=== PATIENT | female | born 2000 | race Caucasian/White ===

== ENCOUNTER 2023-04-30 00:24 | Emergency (ER) | payer MEDICAID, SELFPAY ==
[2023-04-30 00:27] VITALS: BMI 42.3
[2023-04-30 00:31] VITALS: BP 147/105; PULSE 113; RESP 19; TEMP 37.1; O2SAT 98
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
[2023-04-30] MEDS: LORazepam 1 mg Tablet PO (00:44)
[2023-04-30 01:24] VITALS: RESP 18
[2023-04-30] MEDS: ondansetron 2 mg/ML SDV 2 mL 4 MG IVP (01:24)
[2023-04-30] MEDS: morphine 4 mg/mL SDV 1 mL IVP (01:24)
[2023-04-30 01:40] VITALS: BP 139/79; PULSE 105; RESP 18; O2SAT 96
[2023-04-30 01:43] LABS: Basophils # 0.1 10^3/uL (0.0-0.1); Basophils % 1.1 %; Eosinophils # 0.4 10^3/uL (0.0-0.8); Eosinophils % 3.4 %; Hematocrit 41.2 % (37.0-47.0); Hemoglobin 13.9 g/dL (11.5-15.3); Lymphocytes # 4.2 10^3/uL (0.8-4.8); Lymphocytes % 38.2 %; Mean Corpuscular HGB Conc 33.7 g/dL (30.0-36.0); Mean Corpuscular Hemoglobin 27.3 pg (28.0-34.0); Mean Corpuscular Volume 80.8 fl (81-99); Monocytes % 8.7 %; Neutrophils % 47.6 %; Nucleated Red Blood Cells % 0 %; Platelet Count 353 10^3/cmm (130-400); Red Cell Distribution Width 13.2 % (12.1-15.1); White Blood Count 10.9 10^3/uL (4.0-10.0)
[2023-04-30 02:01] LABS: Alanine Aminotransferase 35 U/L (0-33); Albumin Level 4.2 g/dL (3.5-5.2); Alkaline Phosphatase 65 U/L (35-105); Anion Gap 18.4 (5-19); Aspartate Amino Transferase 21 U/L (0-32); Blood Urea Nitrogen 9 mg/dL (6-20); Carbon Dioxide 22 mmol/L (22-29); Chloride 105 mmol/L (98-107); Globulin 2.9 g/dL (1.3-4.6); Glomerular Filtration Rate 104.6 mL/min (90-130); Glucose 92 mg/dL (65-115); Lipase 14 U/L (13-60); Osmolality Calculated 292 mOsm/kg (285-295); Potassium 3.4 mmol/L (3.5-5.1); Sodium 142 mmol/L (136-145); Total Bilirubin 0.2 mg/dL (0.15-1.2); Total Protein 7.1 g/dL (6.6-8.7)
[2023-04-30 02:02] LABS: HCG Qualitative Urine. Negative (Negative)
[2023-04-30 02:10] LABS: Add Urine Culture? No; Add Urine Microscopic? YES; Bacteria Urine 1+ /hpf; Bilirubin Urine Neg (Negative); Blood Urine Neg (Negative); Glucose Urine UA Norm (Normal); Ketones Urine Negative (Negative); Leukocyte Esterase Urine Negative (Negative); Mucus Urine 2+ /hpf; Nitrate Urine Negative (Negative); Protein Urine Neg (Negative); Specific Gravity, Urine 1.025 (1.005-1.030); Squamous Epithelial Cell Urine 15-25 /hpf (0-5); Urine Appearance SL Hazy (CLEAR); Urine Color Yellow (Yellow); Urobilinogen Urine Neg (Negative); WBC Urine 0-4 /hpf (0-5); pH Urine 5 (5-7)
[2023-04-30] MEDS: azithromycin 250 mg Tablet 500 MG PO (02:19)
[2023-04-30] MEDS: cefTRIAXone 1,000 MG in sodium chloride 0.9% (plus) 50 ML 100 MG IV (02:20)
[2023-04-30 02:56] VITALS: BP 115/70; PULSE 93; RESP 18; O2SAT 94
[2023-04-30 03:33] VITALS: BP 115/70
--- NOTE | 2023-05-03 11:42 | DCPLANNER ---
manager retail sales called patient due to no primary care physician - no answer at this time.
== END 2023-04-30 03:35 | disposition home or self-care (01) ==
PROVIDERS: Emergency Provider Emergency Medicine
DX: R30.0 Dysuria (principal)
CPT/HCPCS: 80053; 81001; 81025; 83690; 85025; 87210; 87491; 87591; 96365; 96375; 99284; J0696; J2270; J2405; Q0144

== ENCOUNTER 2023-04-30 23:53 | Emergency (ER) | payer MEDICAID, SELFPAY ==
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
[2023-04-30 23:58] VITALS: BP 138/108; PULSE 89; RESP 16; O2SAT 95; BMI 36.0
[2023-05-01 00:23] LABS: Add Urine Microscopic? NO; Charge for UA Resulting for Rev
[2023-05-01 00:29] LABS: Bilirubin Urine Neg (Negative); Blood Urine Neg (Negative); Glucose Urine UA Norm (Normal); Ketones Urine Negative (Negative); Leukocyte Esterase Urine Negative (Negative); Nitrate Urine Negative (Negative); Protein Urine Neg (Negative); Specific Gravity, Urine 1.015 (1.005-1.030); Urine Appearance Clear (CLEAR); Urine Color Light yellow (Yellow); Urobilinogen Urine Norm (Negative); pH Urine 7 (5-7)
[2023-05-01 00:35] LABS: Amphetamines Screen Urine Negative (Negative); Barbiturates Screen Urine Negative (Negative); Benzodiazepines Screen Urine Negative (Negative); Cocaine Screen Urine Negative (Negative); Opiate Screen Urine Negative (Negative); PCP Screen Urine Negative (Negative); THC Screen Urine Negative (Negative)
[2023-05-01 00:41] LABS: Basophils # 0.1 10^3/uL (0.0-0.1); Basophils % 1.1 %; Eosinophils # 0.7 10^3/uL (0.0-0.8); Eosinophils % 6.6 %; Hematocrit 39.8 % (37.0-47.0); Hemoglobin 12.9 g/dL (11.5-15.3); Lymphocytes % 29.3 %; Mean Corpuscular HGB Conc 32.4 g/dL (30.0-36.0); Mean Corpuscular Hemoglobin 26.7 pg (28.0-34.0); Mean Corpuscular Volume 82.2 fl (81-99); Mean Platelet Volume 10.5 fL (7.4-10.4); Monocytes # 1.1 10^3/uL (0.2-0.9); Monocytes % 10.5 %; Neutrophils # 5.32 10^3/uL (1.8-7.7); Neutrophils % 51.8 %; Nucleated Red Blood Cells % 0 %; Platelet Count 302 10^3/cmm (130-400); Red Blood Count 4.84 10^6/uL (4.1-5.3); Red Cell Distribution Width 13.4 % (12.1-15.1); White Blood Count 10.3 10^3/uL (4.0-10.0)
[2023-05-01 00:51] LABS: HCG, Serum Qual Negative (Negative)
[2023-05-01 01:11] LABS: Alanine Aminotransferase 32 U/L (0-33); Albumin Level 3.7 g/dL (3.5-5.2); Alkaline Phosphatase 65 U/L (35-105); Anion Gap 14.4 (5-19); Aspartate Amino Transferase 21 U/L (0-32); Blood Urea Nitrogen 9 mg/dL (6-20); Calcium 8.7 mg/dL (8.5-10.5); Carbon Dioxide 24 mmol/L (22-29); Chloride 102 mmol/L (98-107); Globulin 2.8 g/dL (1.3-4.6); Glomerular Filtration Rate 104.6 mL/min (90-130); Glucose 96 mg/dL (65-115); Osmolality Calculated 283 mOsm/kg (285-295); Potassium 3.4 mmol/L (3.5-5.1); Sodium 137 mmol/L (136-145); Thyroid Stimulating Hormone 3.15 uIU/mL (0.27-4.20); Total Bilirubin 0.3 mg/dL (0.15-1.2); Total Protein 6.5 g/dL (6.6-8.7)
[2023-05-01 01:14] LABS: Acetaminophen < 5.0 ug/mL (10-30); Alcohol Level < 10 mg/dL (0-10); Salicylate < 0.3 mg/dL (3-10)
[2023-05-01 01:57] VITALS: BP 118/64; PULSE 89; RESP 18; O2SAT 93
--- NOTE | 2023-05-03 12:23 | DCPLANNER ---
property claims manager called patient due to no primary care physician - no answer at this time.
== END 2023-05-01 02:40 | disposition home or self-care (01) ==
PROVIDERS: Emergency Provider Nurse Practitioner Family
DX: F41.9 Anxiety disorder, unspecified (principal); Z91.51 Personal history of suicidal behavior; Z91.410 Personal history of adult physical and sexual abuse
CPT/HCPCS: 80053; 80306; 80307; 81003; 84443; 84703; 85025; 99283

== ENCOUNTER 2023-06-10 22:21 | Inpatient (IN) | payer MEDICAID, SELFPAY ==
[2023-06-10 22:24] VITALS: BP 124/80; PULSE 119; RESP 18; TEMP 36.6; O2SAT 93; BMI 42.3
--- NOTE | 2023-06-10 22:32 | ECG_ITS ---
[facility] Test Date: 2023-06-10 Pat Name: Meli Aranda Department: Room: 151 Gender: Female Judicial Law Clerk: : 2000 Requested By: Darrell Ledesma Order Number: [id number] Hayden MD: Katia Chester M.D. Measurements Intervals [place] Rate: 105 P: 32 CO: 151 QRS: 46 QRSD: 106 T: 40 QT: 323 QTc: 428 Interpretive Statements SINUS TACHYCARDIA INCOMPLETE RIGHT BUNDLE BRANCH BLOCK [90+ ms QRS DURATION, TERMINAL R IN V1/V2, 40+ ms S IN I/aVL/V4/V5/V6] ABNORMAL RHYTHM ECG No previous ECG available for comparison Electronically Signed On 06-11-2023 20:14:32 CDT by Katia Chester M.D. [email or web address]
[2023-06-10 22:34] LABS: Basophils # 0.1 10^3/uL (0.0-0.1); Basophils % 1.2 %; Eosinophils # 0.7 10^3/uL (0.0-0.8); Eosinophils % 6.4 %; Hematocrit 41.6 % (37.0-47.0); Hemoglobin 13.7 g/dL (11.5-15.3); Mean Corpuscular HGB Conc 32.9 g/dL (30.0-36.0); Mean Corpuscular Hemoglobin 26.8 pg (28.0-34.0); Mean Corpuscular Volume 81.4 fl (81-99); Mean Platelet Volume 11.4 fL (7.4-10.4); Monocytes # 1.1 10^3/uL (0.2-0.9); Monocytes % 10.2 %; Neutrophils # 6.89 10^3/uL (1.8-7.7); Neutrophils % 63.1 %; Nucleated Red Blood Cells % 0 %; Platelet Count 290 10^3/cmm (130-400); Red Blood Count 5.11 10^6/uL (4.1-5.3); White Blood Count 10.9 10^3/uL (4.0-10.0)
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
[2023-06-10 22:47] LABS: Alanine Aminotransferase 26 U/L (0-33); Alcohol Level 155 mg/dL (0-10); Alkaline Phosphatase 75 U/L (35-105); Anion Gap 18.3 (5-19); Aspartate Amino Transferase 22 U/L (0-32); Blood Urea Nitrogen 9 mg/dL (6-20); Calcium 8.9 mg/dL (8.5-10.5); Carbon Dioxide 20 mmol/L (22-29); Chloride 105 mmol/L (98-107); Creatinine Clr Calc Pharmacy 149.6629; Globulin 2.8 g/dL (1.3-4.6); Glomerular Filtration Rate 89.7 mL/min (90-130); Glucose 118 mg/dL (65-115); Osmolality Calculated 290 mOsm/kg (285-295); Potassium 3.3 mmol/L (3.5-5.1); Salicylate 0.5 mg/dL (3-10); Sodium 140 mmol/L (136-145); Total Bilirubin 0.2 mg/dL (0.15-1.2); Total Protein 6.8 g/dL (6.6-8.7)
[2023-06-10 22:57] LABS: Acetaminophen < 5.0 ug/mL (10-30)
--- NOTE | 2023-06-10 23:09 | PC.NURSE ---
pt pulled IV out out. Iv was intact and dressing was placed.
[2023-06-10 23:10] LABS: HCG Qualitative Urine. Negative (Negative)
[2023-06-10] MEDS: nicotine 21 mg Patch 1 PATCH TRANSDERMA (23:12)
[2023-06-10 23:25] VITALS: BP 149/83; PULSE 170; RESP 30; O2SAT 95
[2023-06-10] MEDS: haloperidol inj 5 mg/mL INJ 1 mL IM (23:28)
[2023-06-10] MEDS: LORazepam 2 mg/mL INJ 1 mL IM (23:28)
[2023-06-10 23:29] LABS: Amphetamines Screen Urine Negative (Negative); Barbiturates Screen Urine Negative (Negative); Benzodiazepines Screen Urine Negative (Negative); Cocaine Screen Urine Negative (Negative); Opiate Screen Urine Negative (Negative); PCP Screen Urine Negative (Negative); THC Screen Urine Negative (Negative)
--- NOTE | 2023-06-10 23:30 | PC.NURSE ---
Pt served with copy of 96 Hour Hold Rights by this RN and multiple staff members. Pt had no questions at that time.
[2023-06-10 23:40] VITALS: BP 176/148; PULSE 179; RESP 34; O2SAT 92
[2023-06-10 23:54] VITALS: O2SAT 92
[2023-06-10 23:55] VITALS: BP 133/63; PULSE 136; RESP 20; O2SAT 92
[2023-06-11] VITALS (23 sets, daily range): BP systolic 89–141; BP diastolic 42–88; PULSE 91–133; RESP 14–27; TEMP 36.6–36.8; O2SAT 89–98
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
--- NOTE | 2023-06-11 01:08 | PC.NURSE ---
Advised Dr. Ledesma of patient blood pressure and O2 sat, states due to sedation medications and to continue monitoring.
--- NOTE | 2023-06-11 04:09 | PC.NURSE ---
report called to [facility] @ [phone]
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
[2023-06-11] MEDS: budesonide 0.5 mg/2 mL Neb INHALATION ×2 (07:43→19:40)
[2023-06-11] MEDS: albuterol 2.5 mg/3 mL Neb INHALATION ×4 (07:44→19:40)
--- NOTE | 2023-06-11 08:00 | PC.OT ---
Patient uncooperative this date with therapist refusing to answer ?'s. RN reports combative behavior last evening with multiple staff members. Not appropriate for group at this time.
[2023-06-11] MEDS: ARIPiprazole 10 mg Tablet 5 MG PO (09:27)
[2023-06-11] MEDS: thiamine 100 mg Tablet PO (09:28)
[2023-06-11] MEDS: folic acid 1 mg Tablet PO (09:28)
[2023-06-11] MEDS: multivitamin therapeutic Tablet 1 TAB PO (09:28)
[2023-06-11] MEDS: sertraline 50 mg Tablet PO (09:28)
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
[2023-06-11] MEDS: montelukast sodium 10 mg Tablet PO (18:26)
[2023-06-11] MEDS: trazodone 100 mg Tablet PO (20:51)
[2023-06-12] VITALS (7 sets, daily range): BP systolic 132–148; BP diastolic 82–89; PULSE 75–108; RESP 16–20; TEMP 36.6–36.9; O2SAT 92–98
[2023-06-12] MEDS: cetylpyridinium Lozenge 1 EACH MUCOUS MEM ×2 (01:34→18:39)
[2023-06-12] MEDS: albuterol 2.5 mg/3 mL Neb INHALATION ×4 (08:58→22:07)
[2023-06-12] MEDS: budesonide 0.5 mg/2 mL Neb INHALATION ×2 (08:58→22:08)
[2023-06-12] MEDS: multivitamin therapeutic Tablet 1 TAB PO (09:39)
[2023-06-12] MEDS: sertraline 50 mg Tablet PO (09:39)
[2023-06-12] MEDS: thiamine 100 mg Tablet PO (09:39)
[2023-06-12] MEDS: ARIPiprazole 10 mg Tablet 5 MG PO (09:39)
[2023-06-12] MEDS: folic acid 1 mg Tablet PO (09:39)
[2023-06-12] MEDS: nicotine 21 mg Patch 1 PATCH TRANSDERMA (15:43)
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
[2023-06-12] MEDS: montelukast sodium 10 mg Tablet PO (17:18)
[2023-06-12] MEDS: trazodone 100 mg Tablet PO (20:27)
[2023-06-13] VITALS (8 sets, daily range): BP systolic 96–142; BP diastolic 59–91; PULSE 82–106; RESP 18–20; TEMP 36.3–36.9; O2SAT 91–95
[2023-06-13] MEDS: albuterol 2.5 mg/3 mL Neb INHALATION ×4 (03:08→19:30)
[2023-06-13] MEDS: sertraline 100 mg Tablet PO (08:56)
[2023-06-13] MEDS: thiamine 100 mg Tablet PO (08:56)
[2023-06-13] MEDS: ARIPiprazole 10 mg Tablet 5 MG PO (08:56)
[2023-06-13] MEDS: multivitamin therapeutic Tablet 1 TAB PO (08:57)
[2023-06-13] MEDS: folic acid 1 mg Tablet PO (08:57)
[2023-06-13] MEDS: nicotine 21 mg Patch 1 PATCH TRANSDERMA (13:22)
[2023-06-13] MEDS: cetylpyridinium Lozenge 1 EACH MUCOUS MEM ×2 (13:22→19:50)
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
[2023-06-13] MEDS: montelukast sodium 10 mg Tablet PO (18:40)
[2023-06-13] MEDS: budesonide 0.5 mg/2 mL Neb INHALATION (19:30)
[2023-06-13] MEDS: trazodone 100 mg Tablet PO (20:19)
[2023-06-14] VITALS (7 sets, daily range): BP systolic 116; BP diastolic 69; PULSE 73–104; RESP 14–18; O2SAT 90–94
[2023-06-14] MEDS: albuterol 2.5 mg/3 mL Neb INHALATION ×4 (00:20→12:04)
[2023-06-14] MEDS: ARIPiprazole 10 mg Tablet 5 MG PO (09:10)
[2023-06-14] MEDS: folic acid 1 mg Tablet PO (09:11)
[2023-06-14] MEDS: multivitamin therapeutic Tablet 1 TAB PO (09:11)
[2023-06-14] MEDS: thiamine 100 mg Tablet PO (09:11)
[2023-06-14] MEDS: sertraline 100 mg Tablet PO (09:11)
[2023-06-14] MEDS: predniSONE 20 mg Tablet PO (10:01)
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
== END 2023-06-14 14:44 | disposition home or self-care (01) | DRG 918 ==
LOC: ER 22:37 → NP 06-11 01:35
PROVIDERS: Admitting Provider Psychiatry & Neurology Psychiatry; Emergency Provider Emergency Medicine; Visit Provider Psychiatry & Neurology Psychiatry
DX: T65.92XA Toxic effect of unspecified substance, intentional self-harm, initial encounter (principal); F33.9 Major depressive disorder, recurrent, unspecified; Z62.811 Personal history of psychological abuse in childhood; Z62.812 Personal history of neglect in childhood; T14.91XA Suicide attempt, initial encounter; J45.909 Unspecified asthma, uncomplicated; F15.10 Other stimulant abuse, uncomplicated; Y90.6 Blood alcohol level of 120-199 mg/100 ml; Z81.3 Family history of other psychoactive substance abuse and dependence; F17.210 Nicotine dependence, cigarettes, uncomplicated; F10.20 Alcohol dependence, uncomplicated; F14.10 Cocaine abuse, uncomplicated; F11.10 Opioid abuse, uncomplicated; Z78.1 Physical restraint status; Z62.813 Personal history of forced labor or sexual exploitation in childhood
CPT/HCPCS: 36415; 80053; 80306; 80307; 81025; 85025; 93005; 94640; 96372; 97165; 99238; 99285; J1630; J2060; J3411; J3490; J7512; J7613; J7626